=== PATIENT | female | born 1980 | race Caucasian/White ===

== ENCOUNTER 2018-02-14 12:03 | Inpatient (IN) | payer OTHER ==
[2018-02-14 12:44] VITALS: BMI 28.1
--- NOTE | 2018-02-14 14:08 | HP ---
COWS - Scale Resting Pulse: 0= SC 80 or Below Sweatin= Chills/Flushing Restless Observation: 3= Extraneous Movement Pupil Size: 1= Pupils >than Normal Bone or Joint Aches: 2= Severe Diffuse Aches Runny Nose/ Eye Tearin= Runny Nose/Eyes GI Upset > 30mins: 2= Nausea/Diarrhea Tremor Observation: 2= Slight Tremor Visible Yawning Observation: 2= >3x During Session Anxiety or Irritability: 2=Irritable/Anxious Goose Flesh Skin: 0=Smooth Skin COWS Score: [address] [facility] Chief Complaint: i need help to sto using heroin Allergies/Adverse Reactions: Allergies Allergy/AdvReac Type Severity Reaction Status Date / Time No Known Allergies Allergy Verified 02/14/18 13:48 History of Present Illness: this 37 years old female with heroin dependence,seeking detox,withdrawal symptom ,last treatment [facility] 10/28 hepatitis c treated anxiety,depression,insomnia iv drug user heroin weight loss seizure last 10/28 anxiety,depression,insomnia swelling with pain in the right ankle for 1 week at the siite of injection Exam Limitations: No Limitations - Ebola screening Have you traveled outside of the country in the last 21 days: No Have you had contact with anyone from an Ebola affected area: No Have you been sick,other than usual withdrawal symptoms: No Do you have a fever: No - Review of Systems Constitutional: Chills, Loss of Appetite, Malaise, Night Sweats, Changes in sleep, Weakness, Unintentional Wgt. Loss EENT: reports: Tearing, Ear Pain, Nose Congestion Respiratory: reports: No Symptoms reported Cardiac: reports: No Symptoms Reported GI: reports: Nausea, Poor Appetite, Vomiting, Abdominal cramping : reports: No Symptoms Reported Musculoskeletal: reports: Back Pain, Joint Pain, Muscle Pain, Joint Stiffness Integumentary: reports: Dryness Neuro: reports: Headache, Tremors Endocrine: reports: No Symptoms Reported Hematology: reports: No Symptoms Reported Psychiatric: reports: No Sypmtoms Reported, Judgement Intact, Mood/Affect Appropiate, Orientated x3 (insomnia), Anxious, Depressed Patient History - Patient Medical History Hx Asthma: No Hx Chronic Obstructive Pulmonary Disease (COPD): No Hx Cardiac Disorders: No Hx Hypertension: No Hx Seizures: Yes (WITHDRAWAL SEIZURE - LAST EPISODE 10/28) Hx Diabetes: No Hx Gastrointestinal Disorders: No Hx Genitourinary Disorders: Yes (ENDOMETRIOSIS) Hx Sexually Transmitted Disorders: No Hx Renal Disease (ESRD): No Hx Human Immunodeficiency Virus (HIV): No Hx Hepatitis C: No Hx Depression: Yes (AND ANXIETY) Hx Suicide Attempt: No Hx Bipolar Disorder: No Hx Schizophrenia: No Other Medical History: no suicidal,no homicidal - Patient Surgical History Past Surgical History: Yes Hx Neurologic Surgery: No Hx Cataract Extraction: No Hx Cardiac Surgery: No Hx Lung Surgery: No Hx Breast Surgery: No Hx Breast Biopsy: No Hx Abdominal Surgery: No Hx Appendectomy: No Hx Cholecystectomy: No Hx Genitourinary Surgery: No Hx Section: No Hx Orthopedic Surgery: No Other Surgical History: SURGERY FOR ENDOMETRIOSIS IN 2011 lap Anesthesia Reaction: No - PPD History Previous Implant?: Yes Documented Results: Negative w/o proof Implanted On Prior [facility] Admission?: Yes Date: 04/22/13 PPD to be Administered?: Yes - Reproductive History Patient is a Female of Child Bearing Age (11 -55 yrs old): Yes Last Menstrual Period: 02/07/18 Patient : No - Smoking Cessation Smoking history: Current every day smoker Have you smoked in the past 12 months: No Aproximately how many cigarettes per day: 20 If you are a former smoker, when did you quit?: 14 YRS. AGO Hx Chewing Tobacco Use: No Initiated information on smoking cessation: Yes 'Breaking Loose' booklet given: 02/14/18 - Substance & Tx. History Hx Alcohol Use: No Hx Substance Use: Yes Substance Use Type: Heroin Hx Substance Use Treatment: Yes (in [facility] 10/28 in [facility]) - Substances Abused Heroin Route: Injection Frequency: Daily Amount used: 8 BAGS Age of first use: 14 Date of Last Use: 02/14/18 Family Disease History - Family Disease History Family Disease History: Other: Mother (ETOH DEPENDENT) Admission Physical Exam BHS - Vital Signs Vital Signs: Vital Signs - 24 hr 02/14/18 12:39 Temperature 96.9 F L Pulse Rate 69 Respiratory 18 Rate Blood Pressure 104/66 - Physical General Appearance: Yes: Moderate Distress, Tremorous, Irritable, Sweating, Anxious HEENTM: Yes: ALLY, Pharynx Normal Respiratory: Yes: Within Normal Limits, Lungs Clear, Normal Breath Sounds Neck: Yes: Within Normal Limits, No masses,lesions,Nodules, Supple, Trachea in good position Breast: Yes: Breast Exam Deferred Cardiology: Yes: Within Normal Limits, Regular Rhythm, Regular Rate, S1, S2 Abdominal: Yes: Within Normal Limits, Normal Bowel Sounds, Non Tender, Flat, Soft Genitourinary: Yes: Within Normal Limits Back: Yes: Muscle Spasm Musculoskeletal: Yes: full range of Motion, Back pain, Muscle Pain Extremities: Yes: Within Normal Limits, Normal Range of Motion, Tremors Neurological: Yes: wildlife conservation officer II-XII NML intact, Fully Oriented, Alert, Motor Strength 5/5 Integumentary: Yes: Dry, Track Larsen (cellulitis of right ankle) Lymphatic: Yes: Within Normal Limits - Diagnostic (1) Opioid dependence with withdrawal Current Visit: Yes Status: Acute (2) Seizure Current Visit: Yes Status: Acute (3) Cellulitis of right ankle Current Visit: Yes Status: Acute (4) ENDOMETRIOSIS Current Visit: No Status: Active (5) Nicotine dependence Current Visit: Yes Status: Acute (6) Hepatitis C Current Visit: Yes Status: Acute Cleared for Admission [facility] - Detox or Rehab [facility] Level of Care: Medically Managed Detox Regimen/Protocol: Methadone [facility] Breath Alcohol Content Breath Alcohol Content: 0 Urine Pregancy Test - Result Urine Test Results: Negative- NO Line Present Urine Drug Screen - Results Drug Screen Negative: No Urine Drug Screen Results: OPI-Opiates, BZO-Benzodiazepines, OXY-Oxycodone
[2018-02-14] MEDS ORDERED: P-EPHED 60MG/TRIPROLIDI 2.5MG TABLET PO PRN (14:24)
[2018-02-14] MEDS ORDERED: MAG HYDROX/AL HYDROX/SIMETH 30 ML UNIT-DOSE CUP PO PRN (14:24)
[2018-02-14] MEDS ORDERED: MAGNESIUM HYDROX 2400MG/30ML ORAL SUSPENSION 30 ML CUP PO PRN (14:24)
[2018-02-14] MEDS ORDERED: MENTHOL/PHENOL 1 EACH UD MM PRN (14:24)
[2018-02-14] MEDS ORDERED: LOPERAMIDE HCL 2 MG CAPSULE PO PRN (14:24)
[2018-02-14] MEDS ORDERED: guaiFENesin/D-METHORPHAN HB 10 ML UNIT-DOSE CUPS PO PRN (14:24)
[2018-02-14] MEDS ORDERED: MAGNESIUM CITRATE 300 ML BOTTLE PO PRN (14:24)
[2018-02-14] MEDS ORDERED: METHADONE HCL 10 MG TABLET (FOR DETOX USE ONLY) PO ONE ×2 (14:50→23:00)
[2018-02-14] MEDS: diazePAM 5 MG TABLET PO PRN ×2 (18:18→22:47)
[2018-02-14] MEDS: NICOTINE 21 MG/24 HOURS TOPICAL PATCH TD SCH (18:24)
[2018-02-14] MEDS: NICOTINE POLACRILEX 2 MG GUM BUC PRN (18:24)
[2018-02-14] MEDS: hydrOXYzine PAMOATE 25 MG CAPSULE (FP) PO PRN (18:26)
[2018-02-14] MEDS ORDERED: MELATONIN 5 MG TABLETS PO PRN (22:00)
[2018-02-14] MEDS: levETIRAcetam 250 MG TABLET (FP) PO SCH (22:42)
[2018-02-14] MEDS: DOCUSATE SODIUM 100 MG CAPSULE (FP) PO SCH (22:42)
[2018-02-14] MEDS: cloNIDine HCL 0.1 MG TABLET PO SCH (22:42)
[2018-02-14] MEDS: THIAMINE HCL 100 MG TABLET (FP) PO SCH (23:24)
[2018-02-15] MEDS: diazePAM 5 MG TABLET PO PRN ×4 (03:29→20:54)
[2018-02-15] MEDS: CYCLOBENZAPRINE HCL 10 MG TABLET (FP) PO PRN (03:29)
[2018-02-15] MEDS: NICOTINE POLACRILEX 2 MG GUM BUC PRN ×4 (03:31→12:29)
[2018-02-15] MEDS: DOCUSATE SODIUM 100 MG CAPSULE (FP) PO SCH ×3 (05:57→22:25)
[2018-02-15] MEDS: hydrOXYzine PAMOATE 25 MG CAPSULE (FP) PO PRN (05:59)
[2018-02-15] MEDS ORDERED: hydrOXYzine PAMOATE 25 MG CAPSULE (FP) PO PRN (09:11)
[2018-02-15] MEDS ORDERED: METHADONE HCL 10 MG TABLET (FOR DETOX USE ONLY) PO ONE (10:00)
[2018-02-15 10:16] LABS: HEMOGLOBIN 12.5 GM/dL (10.7-15.3); MCH 27.5 pg (25.7-33.7); MCHC 32.9 g/dl (32.0-36.0); MEAN CELL VOLUME 83.6 fl (80-96); MEAN PLT VOLUME 8.2 fl (7.5-11.1); PLATELET COUNT 205 K/MM3 (134-434); RBC 4.55 M/mm3 (3.60-5.2); RDW 13.5 % (11.6-15.6); WHITE BLOOD COUNT 3.3 K/mm3 (4.0-10.0)
[2018-02-15] MEDS: cloNIDine HCL 0.1 MG TABLET PO SCH ×2 (10:24→22:25)
[2018-02-15] MEDS: PRENATAL VITAMINS W/ FOLIC ACID TABLET (FP) PO SCH (10:24)
[2018-02-15] MEDS: levETIRAcetam 250 MG TABLET (FP) PO SCH ×2 (10:25→22:25)
[2018-02-15] MEDS: NICOTINE 21 MG/24 HOURS TOPICAL PATCH TD SCH (10:26)
[2018-02-15 10:41] LABS: URINE APPEARANCE CLOUDY; URINE BILIRUBIN NEGATIVE (<2.0 mg/dL); URINE COLOR YELLOW; URINE GLUCOSE (UA) NEGATIVE (NEGATIVE); URINE KETONE NEGATIVE (NEGATIVE); URINE LEUK ESTERASE NEGATIVE (NEGATIVE); URINE NITRITE NEGATIVE (NEGATIVE); URINE PROTEIN NEGATIVE (NEGATIVE); URINE UROBILINOGEN NEGATIVE mg/dL (0.2-1.0)
[2018-02-15 10:48] LABS: EPI CELLS FEW /HPF (FEW); URINE HYALINE CAST 1 /lpf; URINE MUCUS RARE
[2018-02-15 10:49] LABS: ALBUMIN 2.9 g/dl (3.4-5.0); ALK PHOS 90 U/L (45-117); ANION GAP 6 MMOL/L (8-16); BILIRUBIN,TOTAL 0.2 mg/dL (0.2-1); BLOOD UREA NITROGEN 21 mg/dL (7-18); CALCIUM 8.5 mg/dL (8.5-10.1); CHLORIDE 104 mmol/L (98-107); CO2 27 mmol/L (21-32); CREATININE 0.8 mg/dL (0.55-1.3); GLUCOSE,RANDOM 94 mg/dL (74-106); POTASSIUM 4.5 mmol/L (3.5-5.1); SGOT/AST 54 U/L (15-37); SGPT/ALT 59 U/L (13-61); SODIUM 137 mmol/L (136-145); TOT PROT 6.7 g/dl (6.4-8.2)
--- NOTE | 2018-02-15 13:51 | PN ---
BHS COWS - Scale Resting Pulse: 0= VT 80 or Below Sweatin= Chills/Flushing Restless Observation: 1= Difficult to Sit Still Pupil Size: 1= Pupils >than Normal Bone or Joint Aches: 2= Severe Diffuse Aches Runny Nose/ Eye Tearin= Nasal Congestion GI Upset > 30mins: 0= None Tremor Observation of Outstretched Hands: 0= None Yawning Observation: 1= 1-2x During Session Anxiety or Irritability: 2=Irritable/Anxious Goose Flesh Skin: 0=Smooth Skin COWS Score: 9 BHS Progress Note (SOAP) Subjective: PT C/O ANXIOUS, INSOMNIA, SWEATING BODY ACHES Objective: 02/15/18 13:49 Vital Signs Temperature 97.7 F 02/15/18 10:43 Pulse Rate 67 02/15/18 10:43 Respiratory Rate 18 02/15/18 10:43 Blood Pressure 118/78 02/15/18 10:43 O2 Sat by Pulse Oximetry (%) Laboratory Tests 02/14/18 02/15/18 02/15/18 21:20 08:00 08:00 WBC 3.3 L RBC 4.55 Hgb 12.5 Hct 38.0 MCV 83.6 MCH 27.5 MCHC 32.9 RDW 13.5 Plt Count 205 D MPV 8.2 Sodium Potassium Chloride Carbon Dioxide Anion Gap BUN Creatinine Creat Clearance w eGFR Random Glucose Calcium Total Bilirubin AST ALT Alkaline Phosphatase Total Protein Albumin Urine Color Yellow Urine Appearance Cloudy Urine pH 5.0 Ur Specific [place] 1.021 Urine Protein Negative Urine Glucose (UA) Negative Urine Ketones Negative Urine Blood 2+ H Urine Nitrite Negative Urine Bilirubin Negative Urine Urobilinogen Negative Ur Leukocyte Esterase Negative Urine WBC (Auto) 2 Urine RBC (Auto) 14 Ur Epithelial Cells Few Hyaline Casts 1 Urine Mucus Rare RPR Titer HIV 1&2 Antibody Screen Negative HIV P24 Antigen Negative 02/15/18 02/15/18 08:00 08:00 WBC RBC Hgb Hct MCV MCH MCHC RDW Plt Count MPV Sodium 137 Potassium 4.5 Chloride 104 Carbon Dioxide 27 Anion Gap 6 L BUN 21 H Creatinine 0.8 Creat Clearance w eGFR > 60 Random Glucose 94 Calcium 8.5 Total Bilirubin 0.2 AST 54 H ALT 59 Alkaline Phosphatase 90 Total Protein 6.7 Albumin 2.9 L Urine Color Urine Appearance Urine pH Ur Specific [place] Urine Protein Urine Glucose (UA) Urine Ketones Urine Blood Urine Nitrite Urine Bilirubin Urine Urobilinogen Ur Leukocyte Esterase Urine WBC (Auto) Urine RBC (Auto) Ur Epithelial Cells Hyaline Casts Urine Mucus RPR Titer Nonreactive HIV 1&2 Antibody Screen HIV P24 Antigen ALERT AND ORIENTED SKIN WARM AND MOIST AMB AD ALFREDO EXT MILD TREMORS ANXIOUS, PACING IN HALLWAY 02/15/18 13:50 Assessment: 02/15/18 13:51 WITHDRAWAL SYNDROME Plan: DETOX ORDERED CONTINUE ORAL FLUIDS VISTARIL CHANGED TO 50MG EVERY 6 HOURS CONTINUE TO MONITOR CLINICALLY
[2018-02-15] MEDS: GABAPENTIN 400 MG CAPSULE (FP) PO SCH ×2 (14:03→22:25)
--- NOTE | 2018-02-15 14:06 | CONSULT ---
[facility] Psychiatric Consult - Data Date of interview: 02/15/18 Admission source: [facility] Identifying data: First admission to [facility] for this 37 y/o female seeking detoxification treatment on opioid dependence.Patient is single without dependents,domiciled,unemployed and supported by her fiance. Substance Abuse History: Patient admits to using 8-10 bags of heroin (IV) daliy for past 18 months. See [facility] reports for details : Smoking history: Current every day smoker. Have you smoked in the past 12 months: No. Aproximately how many cigarettes per day: 20. If you are a former smoker, when did you quit?: 14 YRS. AGO. Hx Chewing Tobacco Use: No. Initiated information on smoking cessation: Yes. 'Breaking Loose' booklet given: 02/14/18. - Substance & Tx. History. Hx Alcohol Use: No. Hx Substance Use: Yes. Substance Use Type: Heroin. Hx Substance Use Treatment: Yes (in the [facility] - 10/28 - in [place]) Medical History: Hepatitis C,antecedent of withdrawal-related seizures and surgery for endometriosis (2011). Psychiatric History: No prior history of psychiatric hospitalizations.Patient endorses the diagnoses of MDD,Anxiety Disorder and PTSD.Ms Red is currently seeing a psychiatrist at the [facility] in [facility].Medicated with celexa 20 mg/day + gabapentin 400 mg po tid + trazodone 100 mg/hs + vistaril 50 mg po tid. Patient decllares that she has taken these medications yesterday ( prior to [facility] visit). Denies history of suicide attempts. Physical/Sexual Abuse/Trauma History: No reported history of abuse.Traumatized by the suicide of former boyfriend in 2004. Additional Comment: Urine Drug Screen Results: OPI-Opiates, BZO-Benzodiazepines , OXY-Oxycodone.Noted. Mental Status Exam - Mental Status Exam Alert and Oriented to: Time, Place, Person Cognitive Function: Good Patient Appearance: Well Groomed Mood: Sad, Nervous, Withdrawn, Anxious Affect: Mood Congruent, Constricted Patient Behavior: Fatigued, Cooperative Speech Pattern: Clear, Appropriate Voice Loudness: Normal Thought Process: Goal Oriented Thought Disorder: Not Present Hallucinations: Denies Suicidal Ideation: Denies Insight/Judgement: Poor Sleep: Poorly, Difficulty falling asleep Appetite: Good Muscle strength/Tone: Normal Gait/Station: Normal Psychiatric Findings - Problem List ([place] 1, 2,3) (1) Nicotine dependence Current Visit: Yes Status: Acute (2) Opioid dependence with withdrawal Current Visit: Yes Status: Acute (3) Substance induced mood disorder Current Visit: Yes Status: Acute (4) Depressive disorder Current Visit: Yes Status: Chronic (5) Anxiety disorder Current Visit: Yes Status: Acute (6) Insomnia Current Visit: Yes Status: Acute - Initial Treatment Plan Initial Treatment Plan: psychoeducation.Sleep hygiene.Detoxification.Group + supportive therapy.Medications reconciled : gabapentin 400 mg po tid + celexa 20 mg po daily + trazodone 100 mg po hs + vistaril 50 mg po tid prn.Side effects /benefits of these medications are discussed with the patient.Verbal agreement given to this curriculum writer.Observation.
--- NOTE | 2018-02-15 17:28 | EKG ---
Test Reason : Blood Pressure : / mmHG Vent. Rate : 052 BPM Atrial Rate : 052 BPM P-R Int : 122 ms QRS Dur : 084 ms QT Int : 442 ms P-R-T Axes : 036 075 027 degrees QTc Int : 411 ms SINUS BRADYCARDIA LOW VOLTAGE QRS BORDERLINE ECG NO PREVIOUS ECGS AVAILABLE CLINICAL CORRELATION IS RECOMMENDED Confirmed by MARCO ANTONIO LORENZO, JOSE RAMON ([id number]) on 02/15/2018 5:28:46 PM Referred By: Jennifer Zamudio Confirmed By:JOSE RAMON BERNARD MD
[2018-02-15] MEDS: IBUPROFEN 400 MG TABLET (FP) PO PRN (20:53)
[2018-02-15] MEDS: traZODone HCL 100 MG TABLET (FP) PO SCH (22:25)
[2018-02-15] MEDS: THIAMINE HCL 100 MG TABLET (FP) PO SCH (22:25)
[2018-02-15] MEDS: hydrOXYzine PAMOATE 50 MG CAPSULE (FP) PO PRN (22:26)
[2018-02-16] MEDS: DOCUSATE SODIUM 100 MG CAPSULE (FP) PO SCH ×3 (05:33→22:14)
[2018-02-16] MEDS: GABAPENTIN 400 MG CAPSULE (FP) PO SCH ×3 (05:33→22:14)
[2018-02-16] MEDS: diazePAM 5 MG TABLET PO PRN ×4 (05:34→21:07)
[2018-02-16] MEDS ORDERED: METHADONE HCL 5 MG TABLET (FOR DETOX USE ONLY) PO ONE (10:00)
[2018-02-16] MEDS: CITALOPRAM HYDROBROMIDE 10 MG TABLET (FP) PO SCH (10:32)
[2018-02-16] MEDS: NICOTINE 21 MG/24 HOURS TOPICAL PATCH TD SCH (10:33)
[2018-02-16] MEDS: cloNIDine HCL 0.1 MG TABLET PO SCH ×2 (10:33→22:14)
[2018-02-16] MEDS: levETIRAcetam 250 MG TABLET (FP) PO SCH ×2 (10:33→22:14)
[2018-02-16] MEDS: PRENATAL VITAMINS W/ FOLIC ACID TABLET (FP) PO SCH (10:33)
[2018-02-16] MEDS: NICOTINE POLACRILEX 2 MG GUM BUC PRN ×3 (10:37→16:46)
[2018-02-16] MEDS: CYCLOBENZAPRINE HCL 10 MG TABLET (FP) PO PRN (13:32)
[2018-02-16] MEDS: hydrOXYzine PAMOATE 50 MG CAPSULE (FP) PO PRN ×2 (13:32→23:02)
[2018-02-16] MEDS: IBUPROFEN 400 MG TABLET (FP) PO PRN (15:13)
[2018-02-16] MEDS ORDERED: cloNIDine HCL 0.1 MG TABLET PO ONE (15:50)
--- NOTE | 2018-02-16 15:56 | PN ---
S COWS - Scale Resting Pulse: 1= ID [id number] Sweatin= Chills/Flushing Restless Observation: 1= Difficult to Sit Still Pupil Size: 1= Pupils >than Normal Bone or Joint Aches: 2= Severe Diffuse Aches Runny Nose/ Eye Tearin= Nasal Congestion GI Upset > 30mins: 1= Stomach Cramp Tremor Observation of Outstretched Hands: 2= Slight Tremor Visible Yawning Observation: 2= >3x During Session Anxiety or Irritability: 2=Irritable/Anxious Goose Flesh Skin: 0=Smooth Skin COWS Score: 14 BHS Progress Note (SOAP) Subjective: sweat tremor restlessness anxiety abscess right ankle sweat erythema tenderness, limited range of right ankle motion +2 pulses Objective: 02/16/18 15:56 Vital Signs Temperature 97.0 F L 02/16/18 10:38 Pulse Rate 83 02/16/18 10:38 Respiratory Rate 18 02/16/18 10:38 Blood Pressure 100/69 02/16/18 10:38 O2 Sat by Pulse Oximetry (%) Laboratory Last Values WBC 3.3 K/mm3 (4.0-10.0) L 02/15/18 08:00 RBC 4.55 M/mm3 (3.60-5.2) 02/15/18 08:00 Hgb 12.5 GM/dL (10.7-15.3) 02/15/18 08:00 Hct 38.0 % (32.4-45.2) 02/15/18 08:00 MCV 83.6 fl (80-96) 02/15/18 08:00 MCH 27.5 pg (25.7-33.7) 02/15/18 08:00 MCHC 32.9 g/dl (32.0-36.0) 02/15/18 08:00 RDW 13.5 % (11.6-15.6) 02/15/18 08:00 Plt Count 205 K/MM3 (134-434) D 02/15/18 08:00 MPV 8.2 fl (7.5-11.1) 02/15/18 08:00 Sodium 137 mmol/L (136-145) 02/15/18 08:00 Potassium 4.5 mmol/L (3.5-5.1) 02/15/18 08:00 Chloride 104 mmol/L (98-107) 02/15/18 08:00 Carbon Dioxide 27 mmol/L (21-32) 02/15/18 08:00 Anion Gap 6 MMOL/L (8-16) L 02/15/18 08:00 BUN 21 mg/dL (7-18) H 02/15/18 08:00 Creatinine 0.8 mg/dL (0.55-1.3) 02/15/18 08:00 Creat Clearance w eGFR > 60 (>60) 02/15/18 08:00 Random Glucose 94 mg/dL (74-106) 02/15/18 08:00 Calcium 8.5 mg/dL (8.5-10.1) 02/15/18 08:00 Total Bilirubin 0.2 mg/dL (0.2-1) 02/15/18 08:00 AST 54 U/L (15-37) H 02/15/18 08:00 ALT 59 U/L (13-61) 02/15/18 08:00 Alkaline Phosphatase 90 U/L (45-117) 02/15/18 08:00 Total Protein 6.7 g/dl (6.4-8.2) 02/15/18 08:00 Albumin 2.9 g/dl (3.4-5.0) L 02/15/18 08:00 Urine Color Yellow 02/14/18 21:20 Urine Appearance Cloudy 02/14/18 21:20 Urine pH 5.0 (5.0-8.0) 02/14/18 21:20 Ur Specific [place] 1.021 (1.010-1.035) 02/14/18 21:20 Urine Protein Negative (NEGATIVE) 02/14/18 21:20 Urine Glucose (UA) Negative (NEGATIVE) 02/14/18 21:20 Urine Ketones Negative (NEGATIVE) 02/14/18 21:20 Urine Blood 2+ (NEGATIVE) H 02/14/18 21:20 Urine Nitrite Negative (NEGATIVE) 02/14/18 21:20 Urine Bilirubin Negative (<2.0 mg/dL) 02/14/18 21:20 Urine Urobilinogen Negative mg/dL (0.2-1.0) 02/14/18 21:20 Ur Leukocyte Esterase Negative (NEGATIVE) 02/14/18 21:20 Urine WBC (Auto) 2 /hpf (3-5) 02/14/18 21:20 Urine RBC (Auto) 14 /hpf (0-3) 02/14/18 21:20 Ur Epithelial Cells Few /HPF (FEW) 02/14/18 21:20 Hyaline Casts 1 /lpf 02/14/18 21:20 Urine Mucus Rare 02/14/18 21:20 RPR Titer Nonreactive (NONREACTIVE) 02/15/18 08:00 HIV 1&2 Antibody Screen Negative 02/15/18 08:00 HIV P24 Antigen Negative 02/15/18 08:00 lab noted Assessment: 02/16/18 15:56 withdrawal sx abscess right ankle Plan: continue detox keflex clonidine x 1 now for withdrawal sweating tremor
[2018-02-16] MEDS: THIAMINE HCL 100 MG TABLET (FP) PO SCH (22:14)
[2018-02-16] MEDS: RANITIDINE HCL 150 MG TABLET (FP) PO SCH (22:14)
[2018-02-16] MEDS: CEPHALEXIN MONOHYDRATE 500 MG CAPSULE (UD) PO SCH (22:14)
[2018-02-16] MEDS: traZODone HCL 100 MG TABLET (FP) PO SCH (22:14)
[2018-02-17] MEDS: GABAPENTIN 400 MG CAPSULE (FP) PO SCH ×3 (06:06→22:15)
[2018-02-17] MEDS: DOCUSATE SODIUM 100 MG CAPSULE (FP) PO SCH ×3 (06:07→22:15)
[2018-02-17] MEDS: NICOTINE POLACRILEX 2 MG GUM BUC PRN ×6 (06:07→22:15)
[2018-02-17] MEDS: diazePAM 5 MG TABLET PO PRN ×3 (06:08→14:23)
[2018-02-17] MEDS: ACETAMINOPHEN 325 MG TABLET (FP) PO PRN ×2 (09:55→17:43)
[2018-02-17] MEDS ORDERED: METHADONE HCL 5 MG TABLET (FOR DETOX USE ONLY) PO ONE (10:00)
[2018-02-17] MEDS ORDERED: SUMAtriptan SUCCINATE 25 MG TABLET PO ONE (10:18)
[2018-02-17] MEDS: CITALOPRAM HYDROBROMIDE 10 MG TABLET (FP) PO SCH (10:28)
[2018-02-17] MEDS: RANITIDINE HCL 150 MG TABLET (FP) PO SCH ×2 (10:28→22:16)
[2018-02-17] MEDS: cloNIDine HCL 0.1 MG TABLET PO SCH ×2 (10:28→22:14)
[2018-02-17] MEDS: levETIRAcetam 250 MG TABLET (FP) PO SCH ×2 (10:28→22:15)
[2018-02-17] MEDS: NICOTINE 21 MG/24 HOURS TOPICAL PATCH TD SCH (10:29)
[2018-02-17] MEDS: CEPHALEXIN MONOHYDRATE 500 MG CAPSULE (UD) PO SCH ×4 (10:29→22:19)
[2018-02-17] MEDS: PRENATAL VITAMINS W/ FOLIC ACID TABLET (FP) PO SCH (10:29)
[2018-02-17] MEDS: hydrOXYzine PAMOATE 50 MG CAPSULE (FP) PO PRN ×2 (12:20→20:47)
[2018-02-17] MEDS: CYCLOBENZAPRINE HCL 10 MG TABLET (FP) PO PRN (17:43)
--- NOTE | 2018-02-17 17:43 | PN ---
BHS Progress Note (SOAP) Subjective: joint pain body ache sweat tremor anxiety Objective: 02/17/18 17:41 Vital Signs Temperature 96.8 F L 02/17/18 13:24 Pulse Rate 61 02/17/18 13:24 Respiratory Rate 18 02/17/18 13:24 Blood Pressure 128/68 02/17/18 13:24 O2 Sat by Pulse Oximetry (%) Laboratory Last Values WBC 3.3 K/mm3 (4.0-10.0) L 02/15/18 08:00 RBC 4.55 M/mm3 (3.60-5.2) 02/15/18 08:00 Hgb 12.5 GM/dL (10.7-15.3) 02/15/18 08:00 Hct 38.0 % (32.4-45.2) 02/15/18 08:00 MCV 83.6 fl (80-96) 02/15/18 08:00 MCH 27.5 pg (25.7-33.7) 02/15/18 08:00 MCHC 32.9 g/dl (32.0-36.0) 02/15/18 08:00 RDW 13.5 % (11.6-15.6) 02/15/18 08:00 Plt Count 205 K/MM3 (134-434) D 02/15/18 08:00 MPV 8.2 fl (7.5-11.1) 02/15/18 08:00 Sodium 137 mmol/L (136-145) 02/15/18 08:00 Potassium 4.5 mmol/L (3.5-5.1) 02/15/18 08:00 Chloride 104 mmol/L (98-107) 02/15/18 08:00 Carbon Dioxide 27 mmol/L (21-32) 02/15/18 08:00 Anion Gap 6 MMOL/L (8-16) L 02/15/18 08:00 BUN 21 mg/dL (7-18) H 02/15/18 08:00 Creatinine 0.8 mg/dL (0.55-1.3) 02/15/18 08:00 Creat Clearance w eGFR > 60 (>60) 02/15/18 08:00 Random Glucose 94 mg/dL (74-106) 02/15/18 08:00 Calcium 8.5 mg/dL (8.5-10.1) 02/15/18 08:00 Total Bilirubin 0.2 mg/dL (0.2-1) 02/15/18 08:00 AST 54 U/L (15-37) H 02/15/18 08:00 ALT 59 U/L (13-61) 02/15/18 08:00 Alkaline Phosphatase 90 U/L (45-117) 02/15/18 08:00 Total Protein 6.7 g/dl (6.4-8.2) 02/15/18 08:00 Albumin 2.9 g/dl (3.4-5.0) L 02/15/18 08:00 Urine Color Yellow 02/14/18 21:20 Urine Appearance Cloudy 02/14/18 21:20 Urine pH 5.0 (5.0-8.0) 02/14/18 21:20 Ur Specific [place] 1.021 (1.010-1.035) 02/14/18 21:20 Urine Protein Negative (NEGATIVE) 02/14/18 21:20 Urine Glucose (UA) Negative (NEGATIVE) 02/14/18 21:20 Urine Ketones Negative (NEGATIVE) 02/14/18 21:20 Urine Blood 2+ (NEGATIVE) H 02/14/18 21:20 Urine Nitrite Negative (NEGATIVE) 02/14/18 21:20 Urine Bilirubin Negative (<2.0 mg/dL) 02/14/18 21:20 Urine Urobilinogen Negative mg/dL (0.2-1.0) 02/14/18 21:20 Ur Leukocyte Esterase Negative (NEGATIVE) 02/14/18 21:20 Urine WBC (Auto) 2 /hpf (3-5) 02/14/18 21:20 Urine RBC (Auto) 14 /hpf (0-3) 02/14/18 21:20 Ur Epithelial Cells Few /HPF (FEW) 02/14/18 21:20 Hyaline Casts 1 /lpf 02/14/18 21:20 Urine Mucus Rare 02/14/18 21:20 RPR Titer Nonreactive (NONREACTIVE) 02/15/18 08:00 HIV 1&2 Antibody Screen Negative 02/15/18 08:00 HIV P24 Antigen Negative 02/15/18 08:00 lab noted Assessment: withdrawal sx Plan: continue detox
[2018-02-17] MEDS: traZODone HCL 100 MG TABLET (FP) PO SCH (22:15)
[2018-02-17] MEDS: THIAMINE HCL 100 MG TABLET (FP) PO SCH (22:16)
[2018-02-18] MEDS: GABAPENTIN 400 MG CAPSULE (FP) PO SCH ×3 (05:37→22:11)
[2018-02-18] MEDS: DOCUSATE SODIUM 100 MG CAPSULE (FP) PO SCH ×3 (05:37→22:10)
[2018-02-18] MEDS: hydrOXYzine PAMOATE 50 MG CAPSULE (FP) PO PRN ×3 (05:39→19:42)
[2018-02-18] MEDS: NICOTINE POLACRILEX 2 MG GUM BUC PRN ×6 (05:39→22:12)
[2018-02-18] MEDS ORDERED: SUMAtriptan SUCCINATE 25 MG TABLET PO ONE (08:56)
[2018-02-18] MEDS ORDERED: LORATADINE 10 MG TABLET PO ONE (08:58)
[2018-02-18] MEDS ORDERED: IBUPROFEN 600 MG TABLET (FP) PO ONE (08:59)
--- NOTE | 2018-02-18 09:49 | PN ---
BHS Progress Note (SOAP) Subjective: anxiety sweats low back pain Objective: 02/18/18 09:48 Vital Signs Temperature 98.1 F 02/18/18 09:47 Pulse Rate 113 H 02/18/18 09:47 Respiratory Rate 18 02/18/18 09:47 Blood Pressure 103/75 02/18/18 09:47 O2 Sat by Pulse Oximetry (%) aaox3 ambulating no acute distress Assessment: 02/18/18 09:49 mild withdrawal sx Plan: continue detox increase fluids motrin 600mg prn lidocaine patch d/c in am
[2018-02-18] MEDS ORDERED: METHADONE HCL 10 MG TABLET (FOR DETOX USE ONLY) PO ONE (10:00)
[2018-02-18] MEDS ORDERED: IBUPROFEN 600 MG TABLET (FP) PO PRN ×2 (10:03→10:04)
[2018-02-18] MEDS ORDERED: LIDOCAINE 5% TOPICAL PATCH TP ONE (10:04)
[2018-02-18] MEDS: levETIRAcetam 250 MG TABLET (FP) PO SCH ×2 (10:34→22:10)
[2018-02-18] MEDS: CEPHALEXIN MONOHYDRATE 500 MG CAPSULE (UD) PO SCH ×2 (10:35→22:10)
[2018-02-18] MEDS: CITALOPRAM HYDROBROMIDE 10 MG TABLET (FP) PO SCH (10:35)
[2018-02-18] MEDS: RANITIDINE HCL 150 MG TABLET (FP) PO SCH ×2 (10:36→22:11)
[2018-02-18] MEDS: NICOTINE 21 MG/24 HOURS TOPICAL PATCH TD SCH (10:36)
[2018-02-18] MEDS: cloNIDine HCL 0.1 MG TABLET PO SCH ×2 (10:36→22:09)
[2018-02-18] MEDS: PRENATAL VITAMINS W/ FOLIC ACID TABLET (FP) PO SCH (10:36)
[2018-02-18] MEDS: CYCLOBENZAPRINE HCL 10 MG TABLET (FP) PO PRN ×2 (12:34→22:10)
[2018-02-18] MEDS ORDERED: LIDOCAINE PATCH REMOVAL MC SCH (22:00)
[2018-02-18] MEDS: traZODone HCL 100 MG TABLET (FP) PO SCH (22:10)
[2018-02-18] MEDS: THIAMINE HCL 100 MG TABLET (FP) PO SCH (22:11)
[2018-02-19] MEDS: DOCUSATE SODIUM 100 MG CAPSULE (FP) PO SCH (05:51)
[2018-02-19] MEDS: GABAPENTIN 400 MG CAPSULE (FP) PO SCH (05:51)
[2018-02-19] MEDS: NICOTINE POLACRILEX 2 MG GUM BUC PRN ×2 (05:59→09:22)
[2018-02-19] MEDS ORDERED: METHADONE HCL 5 MG TABLET (FOR DETOX USE ONLY) PO ONE (06:00)
--- NOTE | 2018-02-19 08:36 | DS ---
[facility] Detox Discharge Summary Admission Date: 02/14/18 Discharge Date: 02/19/18 - History Present History: Opioid Dependence - Physical Exam Results Vital Signs: Vital Signs Temperature 97.9 F 02/19/18 07:40 Pulse Rate 91 H 02/19/18 07:40 Respiratory Rate 02/19/18 07:40 Blood Pressure 102/69 02/19/18 07:40 O2 Sat by Pulse Oximetry (%) - Treatment Hospital Course: Detox Protocol Followed, Detoxed Safely, Responded well, Discharged Condition Good, Rehab Referral Accepted - Medication Discharge Medications: Ambulatory Orders Citalopram Hydrobromide [Celexa -] 20 mg PO DAILY 04/20/13 Gabapentin 400 mg PO TID 02/14/18 hydrOXYzine PAMOATE [Vistaril -] 50 mg PO TID PRN 02/14/18 levETIRAcetam [Keppra -] 250 mg PO BID 02/14/18 traZODone HCL [Trazodone HCl] 100 mg PO HS 02/14/18 - Diagnosis (1) Anxiety and depression Current Visit: Yes Status: Acute (2) Anxiety disorder Current Visit: Yes Status: Acute (3) Cellulitis of right ankle Current Visit: Yes Status: Acute (4) Hepatitis C Current Visit: Yes Status: Acute (5) Insomnia Current Visit: Yes Status: Acute (6) Nicotine dependence Current Visit: Yes Status: Chronic Qualifiers: Nicotine product type: cigarettes Substance use status: uncomplicated Qualified Code(s): F17.210 - Nicotine dependence, cigarettes, uncomplicated (7) Opioid dependence with withdrawal Current Visit: Yes Status: Chronic (8) Seizure Current Visit: No Status: Suspected (9) Substance induced mood disorder Current Visit: Yes Status: Acute (10) Depressive disorder Current Visit: Yes Status: Chronic (11) ANXIETY Current Visit: No Status: Active (12) BENZO. DEPENDENCE Current Visit: No Status: Active (13) DEPRESSION Current Visit: No Status: Active (14) ENDOMETRIOSIS Current Visit: No Status: Active - AMA Did Patient Leave Against Medical Advice: No
[2018-02-19] MEDS ORDERED: LORATADINE 10 MG TABLET PO ONE (09:49)
[2018-02-19] MEDS ORDERED: LIDOCAINE 5% TOPICAL PATCH TP SCH (10:00)
[2018-02-19 10:28] VITALS: BP 103/64; PULSE 97; TEMP 97.7
[2018-02-19] MEDS: CITALOPRAM HYDROBROMIDE 10 MG TABLET (FP) PO SCH (10:34)
[2018-02-19] MEDS: PRENATAL VITAMINS W/ FOLIC ACID TABLET (FP) PO SCH (10:34)
[2018-02-19] MEDS: cloNIDine HCL 0.1 MG TABLET PO SCH (10:34)
[2018-02-19] MEDS: RANITIDINE HCL 150 MG TABLET (FP) PO SCH (10:34)
[2018-02-19] MEDS: CEPHALEXIN MONOHYDRATE 500 MG CAPSULE (UD) PO SCH (10:34)
[2018-02-19] MEDS: levETIRAcetam 250 MG TABLET (FP) PO SCH (10:34)
[2018-02-19] MEDS: NICOTINE 21 MG/24 HOURS TOPICAL PATCH TD SCH (10:38)
== END 2018-02-19 11:16 | disposition home or self-care (01) | DRG 773 ==
LOC: YASAS 12:03 → Y6N 14:41
PROC: HZ2ZZZZ Detoxification Services for Substance Abuse Treatment (ICD-10-PCS; principal; 2018-02-14)
DX: F11.23 Opioid dependence with withdrawal (principal); F13.230 Sedative, hypnotic or anxiolytic dependence with withdrawal, uncomplicated; F17.210 Nicotine dependence, cigarettes, uncomplicated; F41.9 Anxiety disorder, unspecified; F32.9 Major depressive disorder, single episode, unspecified; F19.24 Other psychoactive substance dependence with psychoactive substance-induced mood disorder; L03.115 Cellulitis of right lower limb; B18.2 Chronic viral hepatitis C; G47.00 Insomnia, unspecified; Z86.69 Personal history of other diseases of the nervous system and sense organs
CPT/HCPCS: 36415; 80053; 81003; 81015; 85027; 86593; 87389; 93005; 93010; J0735